=== PATIENT | male | born 1955 | race Caucasian/White ===

== ENCOUNTER → 2016-12-23 | Outpatient (CLI) | payer MEDICAID ==
[~2016-12-23] MED LIST: ASPI325T17 PO; ASPI325T80 PO; ATOR10TA9 PO; CEFT1VIA IV; DILT120T3 PO; DILT60TA30 PO; DOCU-131 PO; GLUC1TAB27 PO; GLUC1TAB55 PO; HYDR12.58 PO; LISI5TAB7 PO; METR500T PO; NABU750T PO; OXYC1TAB7 PO; [UNRECOGNIZED DRUG - OTHER] PO; potassium PO
== END | disposition home or self-care (01) ==
LOC: CFH 15:55
PROVIDERS: ATTEND Family Medicine
DX: I08.2 Rheumatic disorders of both aortic and tricuspid valves (principal); I48.91 Unspecified atrial fibrillation; E78.5 Hyperlipidemia, unspecified; I10 Essential (primary) hypertension; C67.9 Malignant neoplasm of bladder, unspecified; Z92.21 Personal history of antineoplastic chemotherapy; Z90.49 Acquired absence of other specified parts of digestive tract
CPT/HCPCS: 93306